=== PATIENT | female | born 1950 | race Caucasian/White ===

== ENCOUNTER 2017-03-16 10:54 | Emergency (ER) | payer OTHER ==
[2017-03-16 10:59] VITALS: BP 153/97; PULSE 83; TEMP 98
--- NOTE | 2017-03-16 11:13 | PDOC ---
History of Present Illness - General Chief Complaint: Pain, Acute Stated Complaint: RIGHT ANKLE PAIN Time Seen by Provider: 03/16/17 10:55 History Source: Patient Exam Limitations: No Limitations - History of Present Illness Initial Comments: 03/16/17 11:24 67y F hx of htn presents with R ankle pain. The pt states she stumbled coming down the steps at home, she externally everted her ankle. denies any falls, head injury/loc or any other pain. pt denies any nunbess/tingling/weakness. pt endorses pain in her right ankle with mild pain right lower leg. pt took a motrin prior to arrival with improvement of pain. pt sates she was able to ambulate although it hurts. Past History - Past Medical History Allergies/Adverse Reactions: Allergies Allergy/AdvReac Type Severity Reaction Status Date / Time Penicillins Allergy Unknown Verified 03/16/17 10:55 Home Medications: Ambulatory Orders Losartan Potassium 50 mg PO DAILY 05/17/16 Cardiac Disorders: No (MURMUR) HTN: Yes - Immunization History Td Vaccination: No TDAP Vaccination: No - Psycho/Social/Smoking Cessation Hx Anxiety: No Suicidal Ideation: No Smoking Status: No Smoking History: Never smoked Number of Cigarettes Smoked Daily: 0 Hx Alcohol Use: No Drug/Substance Use Hx: No Substance Use Type: None Hx Substance Use Treatment: No Review of Systems - Review of Systems Able to Perform ROS?: Yes Comments:: 03/16/17 11:39 Constitutional - no reported Fever, Chills, Musculskelatal - +R ankle pain/swelling no reported back pain, joint swelling skin - + bruising no reported erythema, rash neurological: no reported headache, numbness, focal weakness, tingling, ataxia, hematologic: no reported anemia, easy bruising, easy bleeding *Physical Exam - Vital Signs Last Vital Signs Temp Pulse Resp BP Pulse Ox 98 F 83 16 153/97 100 03/16/17 10:54 03/16/17 10:54 03/16/17 10:54 03/16/17 10:54 03/16/17 10:54 - Physical Exam Comments: 03/16/17 11:40 GENERAL: The patient is awake, alert, and fully oriented, Nontoxic - in no acute distress. HEAD: Normocephalic, atraumatic. EXTREMITIES: mild tenderness to fibular head, and lateral malleolus of R leg, diffuse tenderness of dorsum/lateral aspect of R foot, no tenderness at 5th metatarsal. sensation intact, mld brsuiing on the lateral aspect of R foot. Medical Decision Making - Medical Decision Making 03/16/17 11:41 susupect ankle sprain vs. fx will obtain xrays 03/16/17 12:11 no fx noted on xray pt given a ankle support/aircast supportive measures at home RICE therapy PMD fu return precautinos were discussed I discussed the physical exam findings, ancillary test results and final diagnoses with the patient. I answered all of the patient's questions. The patient was satisfied with the care received and felt comfortable with the discharge plan and treatment plan. The patient will call their primary care physician within 24 hours to arrange follow-up and will return to the Emergency Department with any new, persistent or worsening symptoms. *DC/Admit/Observation/Transfer Diagnosis at time of Disposition: Ankle sprain Qualifiers: Encounter type: initial encounter Involved ligament of ankle: unspecified ligament Laterality: right Qualified Code(s): S93.401A - Sprain of unspecified ligament of right ankle, initial encounter - Discharge Dispostion Disposition: HOME Condition at time of disposition: Improved Admit: No - Referrals Referrals: Onel Meyers MD [Staff Physician] - - Patient Instructions Printed Discharge Instructions: DI for Ankle Sprain Additional Instructions: Return to the emergency department immediately with ANY new, persistent or worsening symptoms. Take ibuprofen (400mg) every 6 hours as needed for your pain Keep your leg elevated to prevent swelling. Rest your leg for the next few days. Use the ankle support when on your legs for support. You MUST call and follow up with your doctor in 4-5 days for further evaluation of your symptoms. Results were discussed with you. Please make sure your doctor reviews the results of your emergency evaluation. If you had any xrays during your visit, it was read preliminarily by myself, a Radiologist will review it and if there are any additional findings we will call you. Print Language: VIET[place]ESE - Post Discharge Activity Work/School Note: Back to Work
== END 2017-03-16 12:17 | disposition home or self-care (01) ==
LOC: FER 10:54
DX: S93.401A Sprain of unspecified ligament of right ankle, initial encounter (principal); W10.9XXA Fall (on) (from) unspecified stairs and steps, initial encounter; Y93.89 Activity, other specified; Y92.9 Unspecified place or not applicable; I10 Essential (primary) hypertension
CPT/HCPCS: 73590-TC-RT; 73610-TC-RT; 73630-TC-RT; 99282-25

== ENCOUNTER 2018-09-25 11:22 | Emergency (ER) | payer OTHER ==
--- NOTE | 2018-09-25 11:32 | PDOC ---
History of Present Illness - General Chief Complaint: Chest Pain Stated Complaint: CHEST TIGHTNESS Time Seen by Provider: 09/25/18 11:29 - History of Present Illness Initial Comments: 09/25/18 12:07 Chief complaint: Chest pain History of present illness: Patient was shoveling snow this morning, 6 subsequently felt pain described it as a tightness in the midsternal area. The pain is persistent, reproducible with pressure, and worse with rotation of the torso or arm movement. Review of systems: No nausea, diaphoresis, shortness of breath, abdominal pain, visual or focal neurologic symptoms, unsteadiness of gait, lightheadedness, dizziness, vertigo, fever/chills, URI symptoms, sore throat, cough. Remainder systems reviewed and found to be negative Past medical history: Mild hypertension controlled with losartan. Unspecified "heart murmur" .Denies diabetes, elevated cholesterol, cigarette smoking, alcohol, or drugs. Social history: No tobacco drugs or alcohol. Fully active and without disability. Stable home and family. Denies anxiety or depression Family history: Mother at age 55 from a presumed heart attack. Father and siblings without known coronary artery disease Physical exam: Alert and oriented well-developed well-nourished no acute distress cheerful and cooperative Afebrile, vital signs normal HEENT clear Neck supple without bruit mass or nodes Lungs clear with full breath sounds bilaterally There is exquisite tenderness to minimal palpation over the mid sternum and the parasternal cartilages bilaterally. This pain is duplicated with arm movement and rotation of the torso CV S1 and S2 normal without murmur rub or gallop pulses full and symmetric no JVD or edema no bruits Abdomen soft nontender without mass or organomegaly Extremities no CCE Skin clear, no rash, adequate turgor and wet mucous membranes Neurological intact Impression: Traumatic costochondritis, occurring this morning from snow shoveling. However, with positive family history, rule out superimposed acute cardiac syndrome Plan: CBC and chemistries, EKG and cardiac enzymes, chest x-ray, symptomatic treatment and observation. Past History - Past Medical History Allergies/Adverse Reactions: Allergies Allergy/AdvReac Type Severity Reaction Status Date / Time Penicillins Allergy Unknown Verified 03/16/17 10:55 Home Medications: Ambulatory Orders Losartan Potassium 50 mg PO DAILY 05/17/16 Cyclobenzaprine HCl [Flexeril] 10 mg PO TID #10 tablet 09/25/18 Ibuprofen [Ibu] 600 mg PO QID PRN #20 tablet 09/25/18 Cardiac Disorders: No (MURMUR) HTN: Yes - Immunization History Td Vaccination: No TDAP Vaccination: No - Suicide/Smoking/Psychosocial Hx Smoking Status: No Smoking History: Never smoked Number of Cigarettes Smoked Daily: 0 Hx Alcohol Use: No Drug/Substance Use Hx: No Substance Use Type: None Hx Substance Use Treatment: No ED Treatment Course - LABORATORY CBC & Chemistry Diagram: 09/25/18 12:25 09/25/18 12:25 Medical Decision Making - Medical Decision Making 09/25/18 12:13 EKG: Normal sinus rhythm 72/m. Normal axes and intervals. No ST-T wave changes. Normal EKG. 09/25/18 13:48 Chest x-ray: Clear CBC chemistries and cardiac enzymes are negative. Patient discharge, symptoms improved with Motrin, to continue medication and follow-up with primary physician. Fully ambulatory and in no significant pain at discharge. *DC/Admit/Observation/Transfer Diagnosis at time of Disposition: Chest wall soft tissue injury Qualifiers: Encounter type: initial encounter Qualified Code(s): S29.9XXA - Unspecified injury of thorax, initial encounter - Discharge Dispostion Disposition: HOME Condition at time of disposition: Improved Decision to Admit order: No - Prescriptions Prescriptions: Cyclobenzaprine HCl [Flexeril] 10 mg PO TID #10 tablet Ibuprofen [Ibu] 600 mg PO QID PRN #20 tablet PRN Reason: Pain - Referrals - Patient Instructions Printed Discharge Instructions: DI for Costochondritis - Post Discharge Activity Forms/Work/School Notes: Back to Work
[2018-09-25 11:41] VITALS: TEMP 98.1; BMI 20.8
[2018-09-25] MEDS ORDERED: IBUPROFEN 400 MG TABLET (FP) PO ONE ×2 (12:13→12:31)
[2018-09-25 13:25] VITALS: BP 113/59; PULSE 73
[2018-09-25 13:35] LABS: BASO % 0.7 % (0-2.0); EOS % 1.4 % (0-4.5); HEMATOCRIT 38.2 % (32.4-45.2); HEMOGLOBIN 12.9 GM/dl (10.7-15.3); LYMPH % 29.1 % (8-40); MCH 30.7 pg (25.7-33.7); MCHC 33.9 g/dl (32.0-36.0); MEAN CELL VOLUME 90.6 fl (80-96); MEAN PLT VOLUME 8.7 fl (7.5-11.1); MONO % 7.8 % (3.8-10.2); PLATELET COUNT 220 K/MM3 (134-434); RBC 4.21 M/mm3 (3.60-5.2); RDW 13.2 % (11.6-15.6); WHITE BLOOD COUNT 4.1 K/mm3 (4.0-10.8)
[2018-09-25 13:42] LABS: ALBUMIN 3.9 g/dl (3.4-5.0); ALK PHOS 74 U/L (45-117); ANION GAP 8 MMOL/L (8-16); BLOOD UREA NITROGEN 14 mg/dl (7-18); CALCIUM 9.4 mg/dl (8.5-10); CHLORIDE 105 mmol/L (98-107); CO2 24 mmol/L (21-32); CREATININE 0.7 mg/dl (0.55-1.3); GLUCOSE,RANDOM 94 mg/dl (74-106); POTASSIUM 3.6 mmol/L (3.5-5.1); SGOT/AST 24 U/L (15-37); SGPT/ALT 22 U/L (13-61); SODIUM 137 mmol/L (136-145); TOT PROT 6.5 g/dl (6.4-8.2)
--- NOTE | 2018-09-26 15:45 | EKG ---
Test Reason : Blood Pressure : / mmHG Vent. Rate : 072 BPM Atrial Rate : 072 BPM P-R Int : 138 ms QRS Dur : 084 ms QT Int : 410 ms P-R-T Axes : 060 043 050 degrees QTc Int : 448 ms NORMAL SINUS RHYTHM NORMAL ECG NO PREVIOUS ECGS AVAILABLE Confirmed by MICKY HUANG MD ([id number]) on 09/26/2018 3:45:26 PM Referred By: ANTHONY MCCORMACK Confirmed By:MICKY HUANG MD
== END 2018-09-25 14:23 | disposition home or self-care (01) ==
LOC: FER 11:22
DX: S29.9XXA Unspecified injury of thorax, initial encounter (principal); X58.XXXA Exposure to other specified factors, initial encounter; Y93.H1 Activity, digging, shoveling and raking; Y92.89 Other specified places as the place of occurrence of the external cause; R01.1 Cardiac murmur, unspecified; I10 Essential (primary) hypertension
CPT/HCPCS: 36415; 71045-TC-FY; 80053; 82550; 84484; 85025; 93005; 99282-25